=== PATIENT | female | born 1985 | race Caucasian/White ===

== ENCOUNTER 2017-11-20 05:00 | Emergency (ER) | payer BC ==
[2017-11-20 05:55] LABS: Urine Appearance CLOUDY; Urine Bilirubin NEGATIVE (NEG); Urine Blood 1+ (NEG); Urine Color YELLOW; Urine Glucose NEGATIVE (NEG); Urine Protein 1+ (NEG); Urine Urobilinogen 0.2 mg/dL (0.2-1.0)
[2017-11-20 05:56] LABS: Urine Microscopic Reflex ORDER UMIC
[2017-11-20 06:04] LABS: Urine Culture Reflex Order REFLEXED
[2017-11-20 06:05] LABS: Urine Bacteria >50 /HPF (<20)
[2017-11-20 06:06] LABS: Urine RBC NONE SEEN /HPF (NONE SEEN)
[2017-11-20 06:15] LABS: Albumin 3.4 g/dL (3.4-5.0); Bilirubin Direct 0.1 mg/dL (0-0.2); Bilirubin Total 0.4 mg/dL (0.2-1.0); Potassium 4.2 mmol/L (3.5-5.1); Protein, Total 8.1 g/dL (6.4-8.2)
[2017-11-20 06:36] LABS: Absolute Lymphocytes (CBC) 2.9 K/uL (0.7-4.9); Absolute Monocytes 0.9 K/uL (0.1-1.3); Absolute Neutrophil 14.8 K/uL (1.8-8.0); Basophils % 0.9 % (0-1.3); Eosinophils % 1.9 % (0-4.4); Hematocrit 39.7 % (36.0-45.0); MCH 26.6 pg (27.0-35.0); MCV 79.4 fL (80-100); MPV 8.5 fL (7.6-11.3); Monocytes % 4.6 % (3.3-12.3); RBC Red Blood Cell Count 5.01 M/uL (3.86-4.86)
[2017-11-20] MEDS ORDERED: CEFTRIAXONE/SWI 1gm 1 GM/10 ML SYR ONE (06:48)
[2017-11-20] MEDS ORDERED: NA CHLORIDE 0.9% 1,000 ML ONE (06:48)
--- NOTE | 2017-11-20 06:57 | ER ---
Nurse's Notes [facility] Name: Marii Cordon Age: 32 yrs Sex: Female : 1985 Arrival Date: 11/20/2017 Time: 05:04 Bed 8 Private MD: Diagnosis: Diverticulitis of large intestine without perforation or abscess without bleeding Presentation: 11/20 05:11 Presenting complaint: Patient states: Lower abdominal pain for 24 hours. Unable to go ao to the bathroom to have a BM. Patient negative for nausea or vomiting. Transition of care: patient was not received from another setting of care. Onset of symptoms was November 19, 2017 at 05:00. Risk Assessment: Do you want to hurt yourself or someone else? Patient reports no desire to harm self or others. Initial Sepsis Screen: Does the patient meet any 2 criteria? No. Patient's initial sepsis screen is negative. Does the patient have a suspected source of infection? No. Patient's initial sepsis screen is negative. Care prior to arrival: None. 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 - Social history:: Smoking status: Patient/guardian denies using tobacco, Patient uses alcohol, occasionally. Patient/guardian denies using street drugs, Patient/guardian denies using The patient lives with family. - Ebola Screening: : Patient negative for fever greater than or equal to 101.5 degrees Fahrenheit, and additional compatible Ebola Virus Disease symptoms Patient denies exposure to infectious person Patient denies travel to an Ebola-affected area in the 21 days before illness onset. - Family history:: not pertinent. Screenin:21 Abuse screen: Denies threats or abuse. Denies injuries from another. Nutritional ao screening: No deficits noted. Tuberculosis screening: No symptoms or risk factors identified. Fall Risk None identified. Assessment: 05:18 General: Appears in no apparent distress. uncomfortable, Behavior is calm, cooperative, ao appropriate for age. Pain: Complains of pain in right lower quadrant and left lower quadrant Pain currently is 8 out of 10 on a pain scale. Neuro: Level of Consciousness is awake, alert, obeys commands, Oriented to person, place, time, situation, Appropriate for age Moves all extremities. Full function Speech is normal, Facial symmetry appears normal. Cardiovascular: Capillary refill < 3 seconds Patient's skin is warm and dry. Cardiovascular: Denies chest pain, nausea, shortness of breath, vomiting. Respiratory: Airway is patent Respiratory effort is even, unlabored, Respiratory pattern is regular, symmetrical, Breath sounds are clear bilaterally. GI: Abdomen is obese, Bowel sounds present X 4 quads. Abd is soft and non tender X 4 quads. GI: Reports lower abdominal pain, constipation. : No signs and/or symptoms were reported regarding the genitourinary system. EENT: No signs and/or symptoms were reported regarding the EENT system. Derm: Skin is intact, Skin is pink, warm \T\ dry. normal, Skin temperature is warm. Musculoskeletal: Circulation, motion, and sensation intact. Range of motion: intact in all extremities. 06:14 Reassessment: Patient appears in no apparent distress at this time. No changes from ao previously documented assessment. Patient and/or family updated on plan of care and expected duration. Pain level reassessed. Patient is alert, oriented x 3, equal unlabored respirations, skin warm/dry/pink. Vital Signs: 05:17 Resp 16; Temp 98.8(O); Pulse Ox 98% on R/A; Weight 115.21 kg (R); Height 5 ft. 9 in. ao (175.26 cm) (R); Pain 8/10; 05:23 BP 144 / 102; Pulse 119; ao 06:12 BP 139 / 99; Pulse 102; Resp 18; Pulse Ox 98% on R/A; ao 05:17 Body Mass Index 37.51 (115.21 kg, 175.26 cm) ao ED Course: 05:04 Patient arrived in ED. es 05:10 Lawrence Benton, CHUN is Primary Nurse. ao 05:12 Bibi Moss MD is Attending Physician. ma2 05:13 Triage completed. ao 05:14 Arm band placed on right wrist. Patient placed in an exam room, on a stretcher, on ao pulse oximetry, Patient notified of wait time. 05:20 Patient has correct armband on for positive identification. Pulse ox on. NIBP on. ao 05:35 Missed attempt(s): 20 gauge in right antecubital area. ao 05:44 Inserted saline lock: 20 gauge in left antecubital area, using aseptic technique. ao ,using aseptic technique. Ultrasound guided IV Blood collected. 06:05 Radiology exam delayed due to lab results not completed at this time. (HCG) sj (BUN/Creatinine). 06:[address] via wheelchair. kw1 06:35 CT Abd/Pelvis - W/Contrast In Process Unspecified. EDMS 06:36 CT completed. Patient tolerated procedure well. Patient moved back from CT. kw1 07:06 Report given to Brittaney RN. ao 07:42 No provider procedures requiring assistance completed. IV discontinued, intact, sv bleeding controlled, No redness/swelling at site. Pressure dressing applied. 07:45 Ezio Manzanares, RN is Primary Nurse. sg Administered Medications: 07:02 Drug: NS 0.9% 1000 ml Route: IV; Rate: 1 bolus; Site: right hand; ao 07:03 Drug: Rocephin 1 grams Route: IV; Rate: calculated rate; Site: right hand; ao 07:04 Drug: Flagyl 500 mg Route: PO; ao 07:04 Drug: Zofran 4 mg Route: IVP; Site: right hand; ao Outcome: 06:56 Discharge ordered by . rashad 07:45 Discharged to home ambulatory, with family. sg 07:45 Condition: good 07:45 Discharge instructions given to patient, Instructed on discharge instructions, follow up and referral plans. no drinking with medication, no driving heavy equipment, medication usage, safety practices, Demonstrated understanding of instructions, follow-up care, medications, Prescriptions given X 4. 07:46 Patient left the ED. sg Signatures: Dispatcher [employer] Abbie Dorman RN RN sv Gay, Steven, RN RN sg Salyer, Edna es Jones, Susan sj Ortiz, Alex, RN RN ao Wilhelm, Kimberly kw1 Bibi Moss MD MD ma2
--- NOTE | 2017-11-20 06:57 | EDPHYS ---
Physician Documentation [facility] Name: Marii Cordon Age: 32 yrs Sex: Female : 1985 Arrival Date: 11/20/2017 Time: 05:04 Bed 8 Private MD: ED Physician Bibi Moss HPI: 11/20 06:28 This 32 yrs old Female presents to ER via Ambulatory with complaints of ma2 Abdominal Pain. 06:28 This 32 yrs old Female presents to ER via Ambulatory with complaints of ma2 Abdominal Pain. 06:28 The patient presents with urinary symptoms. ma2 06:28 Modifying factors: The symptoms are alleviated by the symptoms are aggravated by ma2 movement. Modifying factors: the symptoms are aggravated by nothing. Associated signs and symptoms: Pertinent negatives:. Severity of symptoms: At their worst the symptoms were moderate, in the emergency department the symptoms are unchanged. The patient has not experienced similar symptoms in the past. 06:29 The patient presents with abdominal pain in the left lower quadrant. Onset: The ma2 symptoms/episode began/occurred gradually, 1 day(s) ago. Onset: The symptoms/episode began/occurred gradually. Severity of pain: At its worst the pain was moderate in the emergency department the pain is unchanged. 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 - Social history:: Smoking status: Patient/guardian denies using tobacco, Patient uses alcohol, occasionally. Patient/guardian denies using street drugs, Patient/guardian denies using The patient lives with family. - Ebola Screening: : Patient negative for fever greater than or equal to 101.5 degrees Fahrenheit, and additional compatible Ebola Virus Disease symptoms Patient denies exposure to infectious person Patient denies travel to an Ebola-affected area in the 21 days before illness onset. - Family history:: not pertinent. ROS: 06:29 Constitutional: Negative for fever, chills, and weight loss, Cardiovascular: Negative ma2 for chest pain, palpitations, and edema, Respiratory: Negative for shortness of breath, cough, wheezing, and pleuritic chest pain. 06:29 Abdomen/GI: Positive for abdominal pain, Negative for nausea and vomiting, nausea, vomiting, and diarrhea, nausea, diarrhea, abdominal distension, anorexia, rectal pain, bowel incontinence. 06:29 : Negative for injury or acute deformity, urinary frequency, small amounts, pelvic pain, burning with urination, bladder incontinence, foul smelling urine, vaginal discharge, menstrual abnormality, testicular pain 06:29 All other systems are negative. Exam: 06:29 Constitutional: This is a well developed, well nourished patient who is awake, alert, ma2 and in no acute distress. Chest/axilla: Normal chest wall appearance and motion. Nontender with no deformity. No lesions are appreciated. Cardiovascular: Regular rate and rhythm with a normal S1 and S2. No gallops, murmurs, or rubs. Normal PMI, no JVD. No pulse deficits. Respiratory: Lungs have equal breath sounds bilaterally, clear to auscultation and percussion. No rales, rhonchi or wheezes noted. No increased work of breathing, no retractions or nasal flaring. MS/ Extremity: Pulses equal, no cyanosis. Neurovascular intact. Full, normal range of motion. Neuro: Awake and alert, GCS 15, oriented to person, place, time, and situation. Cranial nerves II-XII grossly intact. Motor strength 5/5 in all extremities. Sensory grossly intact. Cerebellar exam normal. Normal gait. 06:29 Abdomen/GI: Inspection: abdomen appears normal, Palpation: mild abdominal tenderness, in the left lower quadrant, Liver: no appreciated palpable abnormalities, Hernia: not appreciated. Vital Signs: 05:17 Resp 16; Temp 98.8(O); Pulse Ox 98% on R/A; Weight 115.21 kg (R); Height 5 ft. 9 in. ao (175.26 cm) (R); Pain 8/10; 05:23 BP 144 / 102; Pulse 119; ao 06:12 BP 139 / 99; Pulse 102; Resp 18; Pulse Ox 98% on R/A; ao 05:17 Body Mass Index 37.51 (115.21 kg, 175.26 cm) ao MDM: 05:12 Patient medically screened. ma2 06:29 Differential diagnosis: ectopic , kidney stone, diverticulitis, Pelvic ma2 Inflammatory Disease, Pyelonephritis. Data reviewed: vital signs, nurses notes, lab test result(s). 06:54 Counseling: I had a detailed discussion with the patient and/or guardian regarding: the [facility] historical points, exam findings, and any diagnostic results supporting the discharge/admit diagnosis, the presence of at least one elevated blood pressure reading (>120/80) during this emergency department visit, radiology results. Response to treatment: the patient's symptoms have markedly improved after treatment. 11/20 05:21 Order name: Basic Metabolic Panel [facility] 11/20 05:21 Order name: CBC with Diff [facility] 11/20 05:21 Order name: Creatinine for Radiology; Complete Time: 06:27 [facility] 11/20 05:21 Order name: Hepatic Function [facility] 11/20 05:21 Order name: Lipase [facility] 11/20 05:21 Order name: UA; Complete Time: 06:06 [facility] 11/20 05:21 Order name: Test, Serum; Complete Time: 06:27 [facility] 11/20 05:21 Order name: Basic Metabolic Panel; Complete Time: 06:27 [facility] 11/20 05:22 Order name: Liver (Hepatic) Function; Complete Time: 06:27 [facility] 11/20 05:22 Order name: Lipase; Complete Time: 06:27 [facility] 11/20 05:25 Order name: Urine Dipstick--Ancillary (enter results) [facility] 11/20 05:25 Order name: Urine --Ancillary (enter results) [facility] 11/20 05:26 Order name: Urine Dipstick-Ancillary [facility] 11/20 05:57 Order name: Urine Microscopic Only; Complete Time: 06:06 [facility] 11/20 05:12 Order name: NPO; Complete Time: 05:42 [facility] 11/20 05:21 Order name: IV Saline Lock; Complete Time: 05:41 [facility] 11/20 05:21 Order name: Labs collected and sent; Complete Time: 05:42 [facility] 11/20 05:21 Order name: CT Abd/Pelvis - W/Contrast [facility] 11/20 06:07 Order name: Urine Culture [facility] Administered Medications: 07:02 Drug: NS 0.9% 1000 ml Route: IV; Rate: 1 bolus; Site: right hand; ao 07:03 Drug: Rocephin 1 grams Route: IV; Rate: calculated rate; Site: right hand; ao 07:04 Drug: Flagyl 500 mg Route: PO; ao 07:04 Drug: Zofran 4 mg Route: IVP; Site: right hand; ao Disposition: 11/20/17 06:56 Discharged to Home. Impression: Diverticulitis of large intestine without perforation or abscess without bleeding. - Condition is Stable. - Discharge Instructions: High-Fiber Diet, Diverticulitis, Diverticulitis, [id number]. - Prescriptions for Flagyl 500 mg Oral Tablet - take 4 tablet by ORAL route one time for 1 day; 4 tablet. Cipro 500 mg Oral Tablet - take 1 tablet by ORAL route every 12 hours for 7 days; 14 tablet. Zofran 4 mg Oral Tablet - take 1 tablet by ORAL route every 12 hours As needed; 20 tablet. Tylenol- Codeine #3 300-30 mg Oral Tablet - take 2 tablet by ORAL route every 6 hours As needed; 6 tablet. - Work release form, Medication Reconciliation Form, Thank You Letter, Antibiotic Education, Prescription Opioid Use form. - Follow up: Private Physician; When: Tomorrow; Reason: Continuance of care. - Problem is new. - Symptoms have improved. Signatures: Dispatcher [employer] EDMS Ezio Manzanares RN RN sg Ortiz, Alex, RN RN ao Alzahri, Mohammad, MD MD ma2 Corrections: (The following items were deleted from the chart) 06:56 06:56 11/20/2017 06:56 Discharged to Home. Impression: Diverticulitis of large ma2 intestine without perforation or abscess without bleeding. Condition is Stable. Forms are Medication Reconciliation Form, Thank You Letter, Antibiotic Education, Prescription Opioid Use. Follow up: Private Physician; When: Tomorrow; Reason: Continuance of care. ma2 07:46 06:56 11/20/2017 06:56 Discharged to Home. Impression: Diverticulitis of large sg intestine without perforation or abscess without bleeding. Condition is Stable. Discharge Instructions: Diverticulitis, [id number]. Forms are Medication Reconciliation Form, Thank You Letter, Antibiotic Education, Prescription Opioid Use. Follow up: Private Physician; When: Tomorrow; Reason: Continuance of care. Problem is new. Symptoms have improved. ma2
[2017-11-20] MEDS ORDERED: metroNIDAZOLE 500 MG TABLET ONE (07:06)
[2017-11-20] MEDS ORDERED: ONDANSETRON 4 MG/2 ML VIAL ONE (07:06)
--- NOTE | 2017-11-20 08:29 | RAD REPORT ---
EXAM DESCRIPTION: CTAbdomen Pelvis W Contrast - 11/20/2017 7:19 am CLINICAL HISTORY: Abdominal pain. ABD PAIN COMPARISON: No comparisons TECHNIQUE: Biphasic CT imaging of the abdomen and pelvis was performed with 100 ml non-ionic IV cont rast. All CT scans are performed using dose optimization technique as appropriate and may include automated exposure control or mA/KV adjustment according to patient size. FINDINGS: The lung bases are clear. Prominent fatty liver is seen. Several areas of increased density are present in the liver including superior right lobe measuring 2 cm, peripheral right lobe measuring 8 mm medial inferior right lobe m easuring 2.5 cm anterior inferior right lobe measuring 14 mm. The spleen, pancreas, adrenal glands an d kidneys are within normal limits. No bowel obstruction, free air, intra-abdominal free fluid or abscess. 4 cm length of the distal desc ending colon demonstrates significant wall thickening and pericolonic inflammatory changes surroundin g several diverticula compatible with acute diverticulitis. There is no evidence of peridiverticular abscess. The appendix is normal. Trace pelvic free fluid. No evidence of significant lymphadenopathy. No suspicious bony findings. IMPRESSION: Acute uncomplicated diverticulitis of the distal descending colon. Diffuse fatty liver with areas of faint increased density seen which may represent enhancing lesions or fatty sparing. If enhancing lesions are present, they are likely benign. Advise nonemergent follow up MR liver protocol for further assessment.
[2017-11-20 09:30] LABS: Urine Blood 1+ (NEG); Urine Glucose NEGATIVE (NEG); Urine Protein 2+ (NEG); Urine Specific Gravity 1.025 (1.005-1.030); Urine pH 5.5 (5.0-7.0)
== END 2017-11-20 07:46 | disposition home or self-care (01) ==
LOC: ER 05:00
DX: K57.32 Diverticulitis of large intestine without perforation or abscess without bleeding (principal); I10 Essential (primary) hypertension; F41.9 Anxiety disorder, unspecified
CPT/HCPCS: 36415; 74177; 80048; 80076; 81003; 81015; 81025; 83690; 84703; 85025; 87086; 87088; J0696; J2405; J7030; Q9967